=== PATIENT | male | born 2000 | race Caucasian/White ===

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

== ENCOUNTER 2021-10-21 20:23 | Observation (INO) | payer MEDICAID, SELFPAY ==
[2021-10-21] VITALS (7 sets, daily range): BP systolic 126–156; BP diastolic 79–97; PULSE 58–126; RESP 16–22; TEMP 37.1–37.2; O2SAT 98–100; BMI 20.2
[2021-10-21] MEDS: Ondansetron 4 MG/2 ML Vial IV (20:37)
[2021-10-21] MEDS: Morphine 4 MG/ML Syringe IV ×3 (20:37→23:07)
--- NOTE | 2021-10-21 21:00 | RAD_ITS ---
STUDY: X-RAY - RIGHT ANKLE REASON FOR EXAM: Male, 21 years old. right leg injury, twisted ankle while skate boarding. pt unable to extend leg TECHNIQUE: 3 view(s) of the ankle. COMPARISON: None. FINDINGS: Nondisplaced fracture of the medial malleolus. Obliquely oriented fracture of the distal fibula extending to just above the tibiotalar articulation. There is anterior apical angulation with approximately 6 mm of displacement. Longitudinal fracture of the posterior distal tibia. Anterior subluxation of the tibia in relation to the talus. Normal visualized talus and calcaneus. The visualized subtalar, talonavicular, calcaneocuboid and tarsal articulations are normal. Diffuse soft tissue swelling. RAD/Ankle 2 Views IMPRESSION: Trimalleolar fracture with tibiotalar joint subluxation/dislocation. Electronically Signed: Augusto Fowler MD ([place]) at 21:18 EDT ,
--- NOTE | 2021-10-21 21:00 | RAD_ITS ---
STUDY: X-RAY - RIGHT TIBIA AND FIBULA REASON FOR EXAM: Male, 21 years old. right leg injury, twisted ankle while skate boarding. pt unable to extend leg TECHNIQUE: 2 view(s) of the tibia and fibula were obtained. COMPARISON: None. FINDINGS: Trimalleolar fracture described on ankle x-ray. No additional fracture tibia or fibula. The soft tissue structures are unremarkable. RAD/Tibia & Fibula 2 Views IMPRESSION: 1. Trimalleolar fracture described on ankle x-ray. No additional fracture. Electronically Signed: Augusto Fowler MD ([place]) at 21:17 EDT ,
--- NOTE | 2021-10-21 21:11 | EDS_ITS ---
HPI History of Present Illness Chief Complaint: Lower Extremity Injury Informant: patient Narrative Narrative: This is an overall healthy patient who fell while skateboarding. He has pain to the right ankle area. No other injury. No history of prior significant injury to this area. He states he did not hit his head or lose consciousness. He cannot bear weight on this. Nothing really makes it better. PFSH PFSH Home Medications NK 10/21/21 [History Last Taken Unknown] Allergy/AdvReac Type Severity Reaction Status Date / Time amoxicillin [From Augmentin] Allergy Rash Verified 10/21/21 20:24 clavulanic acid Allergy Rash Verified 10/21/21 20:24 [From Augmentin] Social History Smoking Status: Never smoker ROS ROS ED Constitutional Constitutional ED: Denies fever(s) Eyes Eyes: Denies blurry vision or change in vision Cardiovascular Cardiovascular: Denies chest pain Respiratory/Chest Respiratory/Chest: Denies dyspnea Gastrointestinal Gastrointestinal: Denies nausea or vomiting Musculoskeletal Musculoskeletal: Reports other Details: Right ankle pain ; Denies back pain or neck pain Integumentary Denies rash Neurologic Neurologic: Denies headache(s) Psychiatric Psychiatric: Denies anxiety or depression Endocrine Endocrinology: Denies polydipsia or polyuria Hematologic/Lymphatic Hematologic/Lymphatic: Denies easy bleeding or easy bruising Allergic/Immunologic Allergic/Immunologic ED: Denies urticaria EXAM Physical Exam Const Vital Signs: 10/21/21 20:25 10/21/21 22:38 10/21/21 23:10 Temperature 99.0 F Temperature Source Temporal Pulse Rate 126 H 72 Pulse Rate [1 (Initial Baseline)] 66 Pulse Rate [2] 73 Pulse Rate [3] 73 Pulse Rate [4] 58 L Respiratory Rate 18 17 Respiratory Rate [1 (Initial Baseline)] 16 Respiratory Rate [2] 16 Respiratory Rate [3] 20 H Respiratory Rate [4] 22 H Blood Pressure 156/94 H 133/83 H Blood Pressure [1 (Initial Baseline)] 136/88 H Blood Pressure [2] 135/86 H Blood Pressure [3] 135/97 H Blood Pressure [4] 135/97 H Blood Pressure Mean 114 Pulse Ox 98 99 Oxygen Delivery Method Room Air Nasal Cannula Oxygen Delivery Method [1 (Initial Baseline)] Nasal Cannula Oxygen Delivery Method [2] Nasal Cannula Oxygen Delivery Method [3] Nasal Cannula Oxygen Delivery Method [4] Nasal Cannula Oxygen Flow Rate (L/min) 2 Oxygen Flow Rate (L/min) [1 (Initial Baseline)] 2 Oxygen Flow Rate (L/min) [2] 6 Oxygen Flow Rate (L/min) [3] 6 Oxygen Flow Rate (L/min) [4] 6 10/21/21 23:21 10/21/21 23:26 Temperature Temperature Source Pulse Rate Pulse Rate [1 (Initial Baseline)] Pulse Rate [2] Pulse Rate [3] Pulse Rate [4] Respiratory Rate Respiratory Rate [1 (Initial Baseline)] Respiratory Rate [2] Respiratory Rate [3] Respiratory Rate [4] Blood Pressure Blood Pressure [1 (Initial Baseline)] Blood Pressure [2] Blood Pressure [3] Blood Pressure [4] Blood Pressure Mean Pulse Ox Oxygen Delivery Method Nasal Cannula Room Air Oxygen Delivery Method [1 (Initial Baseline)] Oxygen Delivery Method [2] Oxygen Delivery Method [3] Oxygen Delivery Method [4] Oxygen Flow Rate (L/min) 6 Oxygen Flow Rate (L/min) [1 (Initial Baseline)] Oxygen Flow Rate (L/min) [2] Oxygen Flow Rate (L/min) [3] Oxygen Flow Rate (L/min) [4] Positive well nourished and well developed Constitutional Narrative: Patient looks somewhat uncomfortable. He is given morphine for pain. I will give him Zofran to help decrease risk of nausea General Appearance ED: well developed HEENT normocephalic and atraumatic Eyes PERRL Neck full ROM Thyroid: Negative for tender Chest Wall inspection of chest normal Resp normal respiratory effort Cardio regular rate and regular rhythm GI non-tender Palpation: soft Back/Spine no CVA tenderness Cervical Spine: Negative for cervical spine tenderness Thoracic Spine / Upper Back: Negative for thoracic spinal tenderness Lumbar Spine / Lower Back: Negative for lumbar spinal tenderness Extremity Extremity Narrative: Right foot is slightly rotated externally. This appears to be mostly at the ankle. But it does not appear to be fully dislocated. He denies pain or tenderness up at the knee. Squeezing of the knee does make the ankle hurt slightly though. Pulses and sensation are good distally. Neuro oriented x3 Sensorium / Orientation: alert Psych mental status grossly normal Skin Skin Narrative: No breaks in the skin. Lesions: no lesions Rashes: no rashes MDM MDM MDM Narrative Medical decision making narrative: Patient's x-ray shows a trimalleolar fracture with some partial subluxation dislocation. I discussed case with Dr. Mata. Plan will be to admit the patient for surgery. I discussed with the patient and his family reduction and procedural sedation. We agreed to go ahead with this. Procedure: Procedural sedation and right ankle fracture dislocation reduction: Patient's last meal was over 6 hours ago. No problems with anesthesia. No significant disease. Lungs clear. A Mallampati of 1. Timeout was done. Patient was given a total of 100 mg of propofol. This was given 40-40-20. Good sedation was achieved. He was kept on oxygen and end-tidal CO2 with cardiac monitoring the entire time. Lowest oxygen saturation was 99%. He woke up without difficulties. The ankle was reduced with traction countertraction. We placed it in posterior and then sugar-tong fiberglass. He tolerated the procedure well. Radiography Diagnostic Testing: Clinical Impression(s) from Imaging Studies Ankle X-Ray 10/21/21 21:00 IMPRESSION: Trimalleolar fracture with tibiotalar joint subluxation/dislocation. Electronically Signed: Augusto Fowler MD ([place]) at 21:18 EDT , Tibia/Fibula X-Ray 10/21/21 21:00 IMPRESSION: 1. Trimalleolar fracture described on ankle x-ray. No additional fracture. Electronically Signed: uAgusto Fowler MD ([place]) at 21:17 EDT , Procedures Lower Extremity Splints Lower Extremity Splint: Orthoglass Splint Fabrication: Fabricated Location: Right (Well-padded with web roll also.) Discharge Plan Triage Chief Complaint: Lower Extremity Injury ED Provider: Prabhakar Trinh Dx/Rx/DC Orders Clinical Impression: Closed fracture dislocation of right ankle Prescriptions: No Action NK RF: 0 Primary Care Provider: Christiano Warren Referrals: Christiano Warren MD [Primary Care Provider] - Disposition Disposition: Acute Care Hospital [facility]
--- NOTE | 2021-10-21 23:36 | PCM.HP.STD ---
HPI - General General Date of Admission: 10/21/21 HPI Narrative JINNY CERVANTES, is a 21 M who presents with right ankle fracture from skateboarding today. He just started skateboarding recently. He twisted ankle. He presented to the ER - has had closed reduction and application of splint. He has been given pain medication, and feeling better now. His parents are at bedside. Patient is otherwise healthy, he has hx of Augmentin allergy. [facility] Home Medications NK 10/21/21 [History Last Taken Unknown] Allergy/AdvReac Type Severity Reaction Status Date / Time amoxicillin [From Augmentin] Allergy Rash Verified 10/21/21 20:24 clavulanic acid Allergy Rash Verified 10/21/21 20:24 [From Augmentin] Social History Smoking Status: Never smoker ROS Constitutional Constitutional: Denies chills or fever(s) Gastrointestinal Gastrointestinal: Denies nausea or vomiting Musculoskeletal Musculoskeletal: Reports other Details: Right ankle pain, otherwise no additional complaints. Integumentary Integumentary: Reports systems reviewed and no addt'l complaints, except as documented Vital Signs Vital Signs Vital Signs: 10/21/21 20:25 10/21/21 22:38 10/21/21 23:10 Temperature 99.0 F Temperature Source Temporal Pulse Rate 126 H 72 Pulse Rate [1 (Initial Baseline)] 66 Pulse Rate [2] 73 Pulse Rate [3] 73 Pulse Rate [4] 58 L Respiratory Rate 18 17 Respiratory Rate [1 (Initial Baseline)] 16 Respiratory Rate [2] 16 Respiratory Rate [3] 20 H Respiratory Rate [4] 22 H Blood Pressure 156/94 H 133/83 H Blood Pressure [1 (Initial Baseline)] 136/88 H Blood Pressure [2] 135/86 H Blood Pressure [3] 135/97 H Blood Pressure [4] 135/97 H Blood Pressure Mean 114 Pulse Ox 98 99 Oxygen Delivery Method Room Air Nasal Cannula Oxygen Delivery Method [1 (Initial Baseline)] Nasal Cannula Oxygen Delivery Method [2] Nasal Cannula Oxygen Delivery Method [3] Nasal Cannula Oxygen Delivery Method [4] Nasal Cannula Oxygen Flow Rate (L/min) 2 Oxygen Flow Rate (L/min) [1 (Initial Baseline)] 2 Oxygen Flow Rate (L/min) [2] 6 Oxygen Flow Rate (L/min) [3] 6 Oxygen Flow Rate (L/min) [4] 6 10/21/21 23:21 10/21/21 23:26 10/21/21 23:29 Temperature 98.7 F Temperature Source Temporal Pulse Rate 60 Pulse Rate [1 (Initial Baseline)] Pulse Rate [2] Pulse Rate [3] Pulse Rate [4] Respiratory Rate 21 H Respiratory Rate [1 (Initial Baseline)] Respiratory Rate [2] Respiratory Rate [3] Respiratory Rate [4] Blood Pressure 129/83 H Blood Pressure [1 (Initial Baseline)] Blood Pressure [2] Blood Pressure [3] Blood Pressure [4] Blood Pressure Mean 98 Pulse Ox 99 Oxygen Delivery Method Nasal Cannula Room Air Room Air Oxygen Delivery Method [1 (Initial Baseline)] Oxygen Delivery Method [2] Oxygen Delivery Method [3] Oxygen Delivery Method [4] Oxygen Flow Rate (L/min) 6 Oxygen Flow Rate (L/min) [1 (Initial Baseline)] Oxygen Flow Rate (L/min) [2] Oxygen Flow Rate (L/min) [3] Oxygen Flow Rate (L/min) [4] 10/21/21 23:31 Temperature Temperature Source Pulse Rate Pulse Rate [1 (Initial Baseline)] Pulse Rate [2] Pulse Rate [3] Pulse Rate [4] Respiratory Rate Respiratory Rate [1 (Initial Baseline)] Respiratory Rate [2] Respiratory Rate [3] Respiratory Rate [4] Blood Pressure Blood Pressure [1 (Initial Baseline)] Blood Pressure [2] Blood Pressure [3] Blood Pressure [4] Blood Pressure Mean Pulse Ox Oxygen Delivery Method Room Air Oxygen Delivery Method [1 (Initial Baseline)] Oxygen Delivery Method [2] Oxygen Delivery Method [3] Oxygen Delivery Method [4] Oxygen Flow Rate (L/min) Oxygen Flow Rate (L/min) [1 (Initial Baseline)] Oxygen Flow Rate (L/min) [2] Oxygen Flow Rate (L/min) [3] Oxygen Flow Rate (L/min) [4] Weight Weight: 58.8 kg Body Mass Index (BMI) 20.2 Physical Exam Const alert, oriented x3 and no apparent distress Extremity Extremity Narrative: Splint to right ankle is clean, dry and intact. Patient is able to move toes on right foot, CFT < 2 seconds to all toes, pain is controlled at this time. Results Lab / Micro Data Result Diagrams: 10/21/21 23:35 10/21/21 23:35 Radiology Impression Ankle X-Ray 10/21/21 21:00 IMPRESSION: Trimalleolar fracture with tibiotalar joint subluxation/dislocation. Electronically Signed: Augusto Fowler MD ([place]) at 21:18 EDT , Tibia/Fibula X-Ray 10/21/21 21:00 IMPRESSION: 1. Trimalleolar fracture described on ankle x-ray. No additional fracture. Electronically Signed: Augusto Fowler MD (Brooks) at 21:17 EDT , Assessment & Plan Assessment/Plan (1) Closed displaced trimalleolar fracture: PLAN: Evaluation performed. Reviewed right ankle xrays - ordered CT scan. We will plan to proceed with ORIF of the right ankle. It was noted patient has hypertension in the ER. A consult was placed to the hospitalist for medical evaluation. No weightbearing right ankle. Keep right foot elevated. Keep splint clean, dry and intact. SCD left LE. Pain management - tylenol, oxyir, Dilaudid.
[2021-10-21 23:44] LABS: Absolute Lymphocyte Count 1.23 X10^3/uL (0.83-4.51); Absolute Neutrophil Count 11.1 X10^3/uL (2.0-7.7); Basophil# 0.06 X10^3/uL; Basophil% 0.5 % (0-1); Eosinophil# 0.04 X10^3/uL; Eosinophils% 0.3 % (0-5); Hematocrit 39.8 % (40-54); Hemoglobin 13.3 g/dL (13.0-16.5); Lymphocyte # 1.23 X10^3/ul (0.83-4.51); Lymphocyte % 9.3 % (19-41); Mean Corp Hgb Conc 33.4 g/dL (32-36); Mean Corpuscular Hgb 28.1 pg (27.0-32.0); Mean Platelet Vol. 10.7 fl (6.2-12.0); Monocyte% 5.3 % (0-10); NRBC Flagged by Analyzer 0 % (0-5); Neutrophil # 11.07 X10^3/uL (2.7-7.7); Neutrophil % 83.6 % (47-70); Platelet Count 210 K/mm3 (150-450); RBC Distribution Width CV 12.2 % (11.6-14.6); RBC Distribution Width SD 36.9 fl (35.1-43.9); Red Blood Count 4.74 M/mm3 (4.6-6.2); White Blood Count 13.2 K/mm3 (4.4-11.0)
[2021-10-22] VITALS (13 sets, daily range): BP systolic 97–128; BP diastolic 57–78; PULSE 65–84; RESP 14–19; TEMP 36.6–37.3; O2SAT 96–100; BMI 20.1
[2021-10-22 00:04] LABS: ALB/GLOB Ratio 1.2 RATIO (0.9-2.4); AST(SGOT) 22 U/L (15-37); Alanine Aminotransfer ALT/SGPT 23 U/L (16-61); Albumin, Serum 3.5 g/dL (3.2-5.0); Alkaline Phosphatase 148 U/L (45-117); Anion Gap 7 (5-15); BUN 15 mg/dL (7-18); BUN/Creat Ratio 17.4 RATIO (10-20); Chloride 110 mmol/L (98-107); Creatinine, Serum 0.86 mg/dL (0.70-1.30); EST Glomerular Filtration Rate 119 mL/min (>60); Est Glom Filt Rate - Afr Amer 144 mL/min (>60); Estimated Creatinine Clearance 113.95 ml/min; Glucose 107 mg/dL (74-106); Potassium 3.5 mmol/L (3.5-5.1); Protein, Total 6.5 g/dL (6.4-8.2); Sodium Level 143 mmol/L (136-145)
--- NOTE | 2021-10-22 00:04 | CT_ITS ---
Lower extremity CT without contrast FINDINGS: There is an oblique comminuted fracture of the distal fibula. There is an adjacent fracture of the posterior lip of the distal tibia. CT/Extremity Lower without Contra IMPRESSION: Fracture of the fibula and the posterior lip of the tibia. Electronically Signed: Leland Stark MD at 2:52 EDT ,
[2021-10-22] MEDS: 0.9% Saline Lock 10 ML Syringe IV ×3 (04:05→11:47)
[2021-10-22] MEDS: HYDROmorphone 0.5 MG/0.5 ML SYRINGE IV ×3 (04:05→11:46)
--- NOTE | 2021-10-22 11:40 | PCM.PN.HOSP ---
Subjective Subjective Mr. Prater is a 21-year-old male who presented to the emergency department last evening after suffering a fall while skateboarding. On presentation he reported having pain in his right ankle area. He denied any prior injury to that site. He reported that he was unable to bear weight on that leg secondary to pain. Imaging revealed a closed displaced trimalleolar fracture and the patient underwent a closed reduction and application of splint in the emergency department. He was given pain medication and admitted to the hospital for surgery. He was admitted by podiatry and Dr. Mata has asked us to evaluate him preoperatively for medical clearance. The patient denies any past medical history and does not take any medications on a regular basis. He denies any family history of any medical issues. He denies tobacco, alcohol, or and drug use. He currently states his pain is controlled and has no other needs. He is asking if he will be able to go home later today after surgery and I relayed to him this was up to Dr. Mata. He indicates he is never used crutches previously and will need some instruction in this. Objective Data Objective Data Vital Signs: Vital Signs Temp Pulse Resp BP Pulse Ox 98.5 F 82 14 114/73 98 10/22/21 07:30 10/22/21 07:30 10/22/21 07:30 10/22/21 07:30 10/22/21 07:30 Oxygen Flow Rate (L/min) [4] 6 Oxygen Flow Rate (L/min) [3] 6 Oxygen Flow Rate (L/min) [2] 6 Oxygen Flow Rate (L/min) [1 ( 2 Initial Baseline)] Oxygen Flow Rate (L/min) 6 Oxygen Delivery Method [4] Nasal Cannula Oxygen Delivery Method [3] Nasal Cannula Oxygen Delivery Method [2] Nasal Cannula Oxygen Delivery Method [1 ( Nasal Cannula Initial Baseline)] Oxygen Delivery Method Room Air Weight: 58.2 kg Body Mass Index (BMI) 20.1 Intake & Output: Intake and Output for Last 24 Hours 10/20/21 10/21/21 10/22/21 23:59 23:59 23:59 Output Total 375 / 375 Balance -375 / -375 Lab / Micro Data Result Diagrams: 10/21/21 23:35 10/21/21 23:35 Labs: Laboratory Results - last 24 hr 10/21/21 23:35: WBC 13.2 H, RBC 4.74, Hgb 13.3, Hct 39.8 L, MCV 84.0, MCH 28.1, MCHC 33.4, RDW Std Deviation 36.9, RDW Coeff of Delfino 12.2, Plt Count 210, MPV 10.7, Immature Gran % (Auto) 1.000 H, Neut % (Auto) 83.6 H, Lymph % (Auto) 9.3 L, [place] % (Auto) 5.3, Eos % (Auto) 0.3, Baso % (Auto) 0.5, Absolute Neuts (auto) 11.1 H, Absolute Lymphs (auto) 1.23, Nucleated RBC % 0 10/21/21 23:35: Sodium 143, Potassium 3.5, Chloride 110 H, Carbon Dioxide 26.0, Anion Gap 7, BUN 15, Creatinine 0.86, Estim Creat Clear Calc 113.95, Est GFR (MDRD) Af Amer 144, Est GFR (MDRD) Non-Af 119, BUN/Creatinine Ratio 17.4, Glucose 107 H, Calcium 8.0 L, Total Bilirubin 0.30, AST 22, ALT 23, Alkaline Phosphatase 148 H, Total Protein 6.5, Albumin 3.5, Globulin 3.0, Albumin/Globulin Ratio 1.2 Micro: Microbiology 10/22/21 00:12 Nasal Secretion SARS-CoV-2 Antigen (Rapid) - Final Radiography Diagnostic Testing: Radiology Impression Ankle X-Ray 10/21/21 21:00 IMPRESSION: Trimalleolar fracture with tibiotalar joint subluxation/dislocation. Electronically Signed: Augusto Fowler MD ([place]) at 21:18 EDT , Tibia/Fibula X-Ray 10/21/21 21:00 IMPRESSION: 1. Trimalleolar fracture described on ankle x-ray. No additional fracture. Electronically Signed: Augusto Fowler MD ([place]) at 21:17 EDT , Lower Extremity CT 10/22/21 00:04 IMPRESSION: Fracture of the fibula and the posterior lip of the tibia. Electronically Signed: Leland Stark MD at 2:52 EDT , Physical Exam Const alert, oriented x3, no apparent distress, average body habitus, healthy appearing and well nourished Exam Limitations: no limitations HEENT head/scalp atraumatic and moist oral mucous membranes HEENT Narrative: Mallampati 2, dentition good, no thrush Head and Scalp: normocephalic Resp normal respiratory effort, no retractions, no use of accessory muscles and clear to auscultation bilaterally Auscultation: Negative for crackles, rales, rhonchi or wheezes Cardio regular rate, regular rhythm, S1 normal heart sound, S2 normal heart sound, no murmurs, no rub, no gallops, no clicks and no JVD GI normal to inspection, nondistended, normoactive bowel sounds, soft to palpation, non-tender and non-distended; Negative for hepatosplenomegaly Extremity no clubbing, cyanosis or edema Extremity Narrative: Right lower extremity and posterior splint, cap refill is 2+ bilateral lower extremities with pedal pulses on the left being 2+ as well Neuro oriented x3, CN's II-XII intact bilaterally, moves all extremities, no focal motor deficits and no sensory deficits noted Sensorium / Orientation: awake and alert Speech: speech normal Motor Exam: strength 5/5 throughout Assessment & Plan Assessment/Plan (1) Closed displaced trimalleolar fracture: (2) Elevated blood pressure reading: PLAN: Closed displaced bimalleolar fracture of the right lower extremity -OR later today per primary service -PT consultation for gait training with crutches -Pain medication per primary -Add stool softener -N.p.o. per primary service -Medically stable for OR and discharge later today if primary service desires Elevated blood pressure reading -Blood pressure was elevated upon presentation the emergency department -Suspect this was pain induced -Subsequent pressures have normalized -No intervention needed at this time DVT prophylaxis Patient is overall low risk given age and comorbidities -Early mobilization CODE STATUS -Full code Charges/Coding Visit Charges Inpatient E&M: 80675 Subs Hosp L2
--- NOTE | 2021-10-22 11:55 | CASEMGMT ---
RN SHALONDA Face to Face with patient for initial transition planning/care coordination assessment. RN SHALONDA introduced self and role at [facility]. Patient lying in bed, alert and oriented, father at bedside. Patient willing to participate in assessment and is able to answer all questions appropriately. Care providers, pharmacy, and demographics verified. Patient wishes to discharge home, denies need for home health at this time. Patient states he has no further needs or concerns at this time. CM to follow for discharge planning needs that may arise. PCP: Kelvin Specialists: none Preferred Pharmacy: [facility] Insurance: [facility] Prescription Benefit: yes Living Will/HPOA: none LNOK: parents Living Arrangements: Patient lives with parents in a 2 story home with access with bed and bath on first floor. Patient was independent prior. Transportation: parents DME/HHC: Patient was provided with crutches. No further DME in the home. No previous HHC Disposition Plan: Patient to discharge home with family support and follow-up plans in place. Marisel ANN, RN, CM
[2021-10-22] MEDS: 0.9% Normal Saline 1,000 ML 100 ML IV ×2 (13:00→18:04)
--- NOTE | 2021-10-22 13:20 | RAD_ITS ---
STUDY: X-RAY - RIGHT ANKLE REASON FOR EXAM: Male, 21 years old. FX TECHNIQUE: 3 view(s) of the ankle. COMPARISON: 10/21/2021 FINDINGS: Fluoroscopy the right ankle was utilized and operating room during open reduction internal fixation of fracture of the distal fibula and distal syndesmosis stabilization and 3 images are submitted for interpretation.. RAD/Ankle min 3 Views IMPRESSION: Fluoroscopy during ankle surgery. Electronically Signed: Valentin Bruce MD at 14:51 EDT ,
[2021-10-22] MEDS: Lidocaine 1% /Epi 1:100 (20ml) 20 ML Vial (13:29)
--- NOTE | 2021-10-22 15:00 | PCM.OPRPT ---
Problems Associated Problem List Diagnoses (1) Closed displaced trimalleolar fracture: Report of Operation Date of Procedure: 10/22/21 Pre-Operative Diagnosis: Trimalleous ankle fracture, right Post-Operative Diagnosis: Same Surgery/Procedure Performed:: Open reduction internal fixation right ankle fracture Surgeon: Trung Mata vector control specialist: Type of Anesthesia: General and Local Specimen's removed: None Estimated Blood Loss (mL): 20mL Description of Procedure: Indications: This is a 21 year old male who sustained a right ankle fracture - trimalleolus ankle fracture. Xrays and CT scan obtained, there was displaced ankle fracture. Patient elected to proceed with open reduction internal fixation of the fracture. The procedure was reviewed with him in detail. The rationale of the procedure was reviewed with him. The goals and the expectations were discussed and reviewed with him. The possible benefits vs risks and all potential complications were discussed and reviewed with the patient. Patient advised the risks include but are not limited to pain, swelling, blood clot, infection, need for further surgery, symptomatic hardware, numbness, post op arthritis, nerve injury, weakness, loss of limb, loss of life.The patient expressed understanding and agreement, and elected to proceed forward with the procedure. All of his questions were answered. The consent forms were reviewed with him and she freely signed it. No guarantees were given or implied. Operative Procedure: The patient was brought back to the operating room and was placed on the operating room table in the supine position. The patient was carefully secured to the operating room table with a safety belt around her waist. The patient received 900mg of IV Clindamycin for antibiotic prophylaxis. A well padded pneumatic tourniquet was applied around the right thigh, but was not used for this procedure. The right lower extremity was scrubbed, prepped, and draped in the usual aseptic fashion. A total ot 10mL of 1% Lidocaine pain with 1:100,000 epi was given as a lateral ankle block. The ankle was noted to be unstable consistent with trimalleolus ankle fracture. Using a 15 blade, a skin incision was made overlying the lateral malleolus. Careful dissection was completed down to the lateral malleolus fracture. The periosteum was left intact. There was an oblique malleolus fracture. The fibula was brought out to length and was rotated back to normal position, it was stabilized with a bone clamp. The fracture was fixated using rigid open reduction internal fixation technique with 1 Arthrex a titanium distal fibular plate, which was applied across the fracture site using a total of 3.0mm locking screws distally and 3.5mm locking screws and one 3.5mm cortical screw proximally through the plate. The clamp was removed. There fracture was reduced, very stable, and in good position. This was confirmed visually as well as using intra operative fluoroscopy. Attention was directed to the medial malleolus which was reduced, in good position and stable so it was no fixated. The posterior malleolus was in good position as well. There fractures were reduced, stable, and in good position. This was confirmed visually as well as using intra operative fluoroscopy. There was noted to be some mild instability of the distal syndesmosis, and the syndesmosis was reduced, and fixated using one Arthrex Tightrope and appropriately tensioned. At this time, the distal ankle syndesmosis was stressed with and it was noted be be stable with no gapping present. Again, the posterior malleolus was intact, properly aligned, and did not need to be fixated. At this time there was noted to be excellent stability to the ankle joint, range of motion was smooth and gliding normally. There was no popping, clicking, or crepitus present. Intraoperative fluoroscopy was used to check the site and it was noted fibular length and tib fib overlap was normal, ankle mortise with medial and lateral gutters in normal position/alignment with good positioning of the plate, screws, and tight rope. There was good bone to bone alignment of the fracture sites. There was excellent stability to the ankle / fracture site. The ankle was stressed under fluoroscopy and negative anterior drawer, normal talar tilt, no medial gutter gapping with external stress test, and no gapping or instability with Cotton test as noted above. The surgical site was flushed out with copious amounts of normal saline solution. The subcutaneous tissue was reapproximated using 2-0 Vicryl, and the skin was 3-0 Nylon. Hemostasis maintained with no significant bleeding. CFT < 2 seconds to all toes with intact pedal pulses. A dressing was applied which consisted of Betadine soaked adaptic, 4x4 gauze, Kerlix, webril, ever bandages, and well padded below knee posterior splint w/ heel offloaded. Good vascular flow to the foot/ankle was maintained throughout the procedure with CFT < 2 seconds, and normal temperature present. Also of note, all vital structures, including all vital neurovascular and tendon structures were properly identified, protected and retracted as necessary. The patient tolerated the above procedure well and anesthesia well with no complications. The patient was transported to the recovery room in good condition and vital signs stable. Post op orders were placed, no weightbearing right foot, keep foot elevated. Keep dressing/splint clean, dry and intact. Patient will be followed as inpatient. Grafts/Implants Used: 1 x Arthrex plate with screws, 1 x Tight rope Complications None
--- NOTE | 2021-10-22 15:15 | RAD_ITS ---
STUDY: X-RAY - RIGHT ANKLE REASON FOR EXAM: Male, 21 years old. post op TECHNIQUE: 3 view(s) of the ankle. COMPARISON: 10/21/2021 FINDINGS: Interval open reduction internal fixation of fracture the distal fibula with a lateral plate and screws. Nondisplaced oblique fracture through the medial malleolus the tibia. Interval reduction of the tibiotalar joint. Interval distal syndesmosis stabilization. Normal visualized talus and calcaneus. The visualized subtalar, talonavicular, calcaneocuboid and tarsal articulations are normal. Fiberglas cast obscures soft tissue and bony detail. RAD/Ankle min 3 Views IMPRESSION: Interval reduction of the tibiotalar joint with open reduction internal fixation of fracture of the distal fibula and stabilization the distal syndesmosis. Electronically Signed: Valentin Bruce MD at 15:37 EDT ,
--- NOTE | 2021-10-22 16:30 | NURSING ---
returned from pacu rt ankle ever wrap intact, drowsy, no co pain voiced ,father @ bedside
[2021-10-22] MEDS: Clindamycin 600 MG/50 ML BAG 100 MG IV (22:13)
[2021-10-22] MEDS: Acetaminophen 325 MG Tablet 650 MG PO (22:14)
[2021-10-23] MEDS: 0.9% Normal Saline 1,000 ML 100 ML IV (03:49)
[2021-10-23 03:50] VITALS: BP 104/50; PULSE 60; RESP 16; TEMP 36.4; O2SAT 100
[2021-10-23] MEDS: Clindamycin 600 MG/50 ML BAG 100 MG IV (04:48)
[2021-10-23 08:18] VITALS: BP 112/63; PULSE 74; RESP 16; TEMP 36.8; O2SAT 100
[2021-10-23] MEDS: oxyCODONE 5 MG Tablet PO ×2 (08:26→14:03)
--- NOTE | 2021-10-23 11:22 | PCM.PN.HOSP ---
Subjective Subjective Patient states he is doing okay. Complaining of a little pain at the medial right ankle and some tingling in his toes. Otherwise, he has no issues. He is waiting for therapy to come see him to teach him how to use his crutches. Objective Data Objective Data Vital Signs: Vital Signs Temp Pulse Resp BP Pulse Ox 98.3 F 74 16 112/63 100 10/23/21 08:18 10/23/21 08:18 10/23/21 08:18 10/23/21 08:18 10/23/21 08:18 Oxygen Flow Rate (L/min) [4] 6 Oxygen Flow Rate (L/min) [3] 6 Oxygen Flow Rate (L/min) [2] 6 Oxygen Flow Rate (L/min) [1 ( 2 Initial Baseline)] Oxygen Flow Rate (L/min) 6 Oxygen Delivery Method [4] Nasal Cannula Oxygen Delivery Method [3] Nasal Cannula Oxygen Delivery Method [2] Nasal Cannula Oxygen Delivery Method [1 ( Nasal Cannula Initial Baseline)] Oxygen Delivery Method Room Air Weight: 58.2 kg Body Mass Index (BMI) 20.1 Intake & Output: Intake and Output for Last 24 Hours 10/21/21 10/22/21 10/23/21 23:59 23:59 23:59 Intake Total 856.67 / 1356.67 1525 / 1525 Output Total 1275 / 2024 750 / 750 Balance -418.33 / -668.33 775 / 775 Lab / Micro Data Result Diagrams: 10/21/21 23:35 10/21/21 23:35 Micro: Microbiology 10/22/21 00:12 Nasal Secretion SARS-CoV-2 Antigen (Rapid) - Final Radiography Diagnostic Testing: Radiology Impression Ankle X-Ray 10/22/21 13:20 IMPRESSION: Fluoroscopy during ankle surgery. Electronically Signed: Valentin Bruce MD at 14:51 EDT , Ankle X-Ray 10/22/21 15:15 IMPRESSION: Interval reduction of the tibiotalar joint with open reduction internal fixation of fracture of the distal fibula and stabilization the distal syndesmosis. Electronically Signed: Valentin Bruce MD at 15:37 EDT , Physical Exam Const alert, oriented x3, no apparent distress, average body habitus, healthy appearing and well nourished Constitutional Narrative: Young male sitting up in bed, father at bedside, patient appears comfortable nontoxic, very pleasant Exam Limitations: no limitations HEENT head/scalp atraumatic and moist oral mucous membranes HEENT Narrative: Mallampati 2, no thrush Head and Scalp: normocephalic Resp normal respiratory effort, no retractions, no use of accessory muscles and clear to auscultation bilaterally Auscultation: Negative for crackles, rales, rhonchi or wheezes Cardio regular rate, regular rhythm, S1 normal heart sound, S2 normal heart sound, no murmurs, no rub, no gallops, no clicks and no JVD GI normal to inspection, nondistended, normoactive bowel sounds, soft to palpation, non-tender and non-distended; Negative for hepatosplenomegaly Extremity no clubbing, cyanosis or edema Extremity Narrative: Right lower extremity and posterior splint, cap refill is 2+ bilateral lower extremities with pedal pulses on the left being 2+ as well Neuro oriented x3, CN's II-XII intact bilaterally, moves all extremities, no focal motor deficits and no sensory deficits noted Sensorium / Orientation: awake and alert Speech: speech normal Motor Exam: strength 5/5 throughout Assessment & Plan Assessment/Plan (1) Closed displaced trimalleolar fracture: (2) Elevated blood pressure reading: PLAN: Closed displaced bimalleolar fracture of the right lower extremity -Postop day 1 ORIF right ankle fracture -PT consultation for gait training with crutches--> instruction pending -Pain medication per primary -Recommended MiraLAX daily while on pain medication after discharge -Regular diet reinitiated and tolerating well Elevated blood pressure reading -Blood pressure has normalized -I suspect his elevated reading on presentation emergency department was related to his pain DVT prophylaxis -Patient is overall low risk given age and comorbidities -Early mobilization CODE STATUS -Full code Disposition: -Medically stable for discharge later today Charges/Coding Visit Charges Inpatient E&M: 09108 Subs Hosp L2
--- NOTE | 2021-10-23 11:53 | DCINST_ITS ---
Discharge Instructions Activity Discharge Activity: Use Crutches Weight Bearing Status: No weight bearing (No weightbearing right foot.) Keep extremity elevated above heart level: Right Leg (Keep right foot elevated for at least 50 minutes of every hour.) Dressing / Incision Call your doctor if your incision/area has: Continuous Slow Oozing, Sudden Increased Bleeding and Foul Smelling Discharge Call your doctor if you observe: Fever of 101 or Higher, Shortness of breath, Chest pain, Increased palpitations (irregular heartbeat), Calf discomfort and Uncontrolled pain Change Dressing in: leave in place till F/U Remove Dressing in: do not remove dressing Cleanse incision/area with: Do not get Incision Wet and Keep Dressing Clean & Dry Follow Up Care Please Follow Up With: Trung Mata DPM When: Follow up with Dr. Mata within 1 week at [facility], [address] [place] [address], [facility] [place]. Office phone number: [phone] Dr. Mata cell: [phone] Test Results: Test results from this visit will be discussed in further detail at your follow-up appointment, if applicable. Discharge Plan Admission Admit Date/Time: 10/21/21 22:29 Attending Provider: Trung Mata Primary Care Provider: Christiano Warren Consulting Providers: Marcia Goldstein ; Vasile Gonzalez Efewongbe ; Fransisca Medina ; Glendy Branch NP ; Jersey Boyle NP ; Mable Gallo Discharge Orders/Prescriptions Prescriptions: New hydrocodone-acetaminophen 5-325 mg tablet 1 - 2 tab PO Q6H PRN (Reason: pain) 2 Days Qty: 14 RF: 0 Referrals / Follow Up: Christiano Warren MD [Primary Care Provider] -
--- NOTE | 2021-10-23 11:56 | PCM.DC.SUM ---
Providers Date of Admission: 10/21/21 Primary Care Physician: Dr. Christiano Warren MD Consultations 10/21/21 23:16 Consult: Hospitalist Routine Consulting Provider: [facility] Reason for Consult: hypertension, medical evaluation EMERGENT Consult: No MD Notified: Yes Date Notified: 10/21/21 Time Notified: 23:17 Method of Notification: Answering Service Reason For Visit: TRIMALLEOLUS ANKLE FRACTURE Diagnosis Discharge Diagnosis (1) Closed displaced trimalleolar fracture: Status: Acute Code(s): S82.853A - Displaced trimalleolar fracture of unspecified lower leg, initial encounter for closed fracture (2) Elevated blood pressure reading: Status: Acute Code(s): R03.0 - Elevated blood-pressure reading, without diagnosis of hypertension Medications at Discharge Home Medications hydrocodone-acetaminophen 1 - 2 tab PO Q6H PRN 2 Days #14 tab 10/23/21 Hospital Course Operations - (ORIF right ankle fracture on 10/22/2021) Summary of Care Provided Hospital Course: Patient underwent ORIF right ankle fracture which went very well with no complications. Patient is doing very well today with no problems. Patient will be discharged home today. Physical Exam Const alert, oriented x3 and no apparent distress Extremity Extremity Narrative: Splint to right ankle is clean, dry and intact. Patient is able to move toes on right foot, CFT < 2 seconds to all toes, pain is controlled at this time. Weight / BMI Weight Weight: 58.2 kg Body Mass Index (BMI) 20.1 ABG / Lab / Microbiology Data Result Diagrams: 10/21/21 23:35 10/21/21 23:35 Microbiology: Microbiology 10/22/21 00:12 Nasal Secretion SARS-CoV-2 Antigen (Rapid) - Final Radiography Diagnostic Testing: Radiology Impression Ankle X-Ray 10/22/21 13:20 IMPRESSION: Fluoroscopy during ankle surgery. Electronically Signed: Valentin Bruce MD at 14:51 EDT , Ankle X-Ray 10/22/21 15:15 IMPRESSION: Interval reduction of the tibiotalar joint with open reduction internal fixation of fracture of the distal fibula and stabilization the distal syndesmosis. Electronically Signed: Valentin Bruce MD at 15:37 EDT , D/C Instructions Weight Bearing Status: No weight bearing (No weightbearing right foot.) Keep extremity elevated above heart level: Right Leg (Keep right foot elevated for at least 50 minutes of every hour.) Call your doctor if your incision/area has: Continuous Slow Oozing, Sudden Increased Bleeding and Foul Smelling Discharge Call your doctor if you observe: Fever of 101 or Higher, Shortness of breath, Chest pain, Increased palpitations (irregular heartbeat), Calf discomfort and Uncontrolled pain Cleanse incision/area with: Do not get Incision Wet and Keep Dressing Clean & Dry Please Follow Up With: Trung Mata DPM When: Follow up with Dr. Mata within 1 week at [facility], [address] [place] [address], [place]. Office phone number: [phone] Dr. Mata cell: [phone] Meaningful Use Info Meaningful Use Diagnoses (Choose all that apply): None applicable Discharge Plan Admission Admit Date/Time: 10/21/21 22:29 Attending Provider: Trung Mata Primary Care Provider: Christiano Warren Consulting Providers: Marcia Goldstein ; Vasile Gonzalez ; Eleuterio Adams ; Fransisca Medina ; Glendy Branch NP ; Jersey Boyle NP ; Mable Gallo Discharge Orders/Prescriptions Prescriptions: New hydrocodone-acetaminophen 5-325 mg tablet 1 - 2 tab PO Q6H PRN (Reason: pain) 2 Days Qty: 14 RF: 0 Referrals / Follow Up: Christiano Warren MD [Primary Care Provider] -
--- NOTE | 2021-10-23 11:58 | PCM.PROGNOTE ---
Subjective Subjective Patient was seen today for follow up on right ankle. He is doing well, he is sitting up in chair with no complaints. Pain well controlled. No fever, chills, nausea or vomiting. Objective Data Objective Data Vital Signs: Vital Signs Temp Pulse Resp BP Pulse Ox 98.3 F 74 16 112/63 100 10/23/21 08:18 10/23/21 08:18 10/23/21 08:18 10/23/21 08:18 10/23/21 08:18 Oxygen Flow Rate (L/min) [4] 6 Oxygen Flow Rate (L/min) [3] 6 Oxygen Flow Rate (L/min) [2] 6 Oxygen Flow Rate (L/min) [1 ( 2 Initial Baseline)] Oxygen Flow Rate (L/min) 6 Oxygen Delivery Method [4] Nasal Cannula Oxygen Delivery Method [3] Nasal Cannula Oxygen Delivery Method [2] Nasal Cannula Oxygen Delivery Method [1 ( Nasal Cannula Initial Baseline)] Oxygen Delivery Method Room Air Weight: 58.2 kg Body Mass Index (BMI) 20.1 Intake & Output: Intake and Output for Last 24 Hours 10/21/21 10/22/21 10/23/21 23:59 23:59 23:59 Intake Total 856.67 / 1356.67 1525 / 1525 Output Total 1275 / 2025 750 / 750 Balance -418.33 / -668.33 775 / 775 Lab / Micro Data Result Diagrams: 10/21/21 23:35 10/21/21 23:35 Micro: Microbiology 10/22/21 00:12 Nasal Secretion SARS-CoV-2 Antigen (Rapid) - Final Radiography Diagnostic Testing: Radiology Impression Ankle X-Ray 10/22/21 13:20 IMPRESSION: Fluoroscopy during ankle surgery. Electronically Signed: Valentin Bruce MD at 14:51 EDT , Ankle X-Ray 10/22/21 15:15 IMPRESSION: Interval reduction of the tibiotalar joint with open reduction internal fixation of fracture of the distal fibula and stabilization the distal syndesmosis. Electronically Signed: Valentin Bruce MD at 15:37 EDT , Physical Exam Const alert, oriented x3 and no apparent distress Extremity Extremity Narrative: Splint to right ankle is clean, dry and intact. Patient is able to move toes on right foot, CFT < 2 seconds to all toes, pain is controlled at this time. No active bleeding. No suspicion for infection or DVT. Assessment & Plan Assessment/Plan (1) Closed displaced trimalleolar fracture: PLAN: Evaluation performed. Reviewed right ankle xrays post op xrays and discussed with patient and his family who were bedside today. No weightbearing right foot/ankle. Keep right foot elevated. Keep splint clean, dry and intact. Reviewed mechanical DVT prophylaxis. Pain management - hydrocodone/acetaminophen for discharge. Ok to discharge home today and follow up with me within 1 week, sooner if needed. (2) Elevated blood pressure reading:
[2021-10-23 14:39] VITALS: BP 118/73; PULSE 73; RESP 18; TEMP 37.2; O2SAT 99
[2021-10-24 09:19] LABS: Vitamin D,25 Hydroxy 13.9 ng/mL
== END 2021-10-23 14:55 | disposition home or self-care (01) | DRG 313 ==
LOC: ED 23:31 → MS3 10-22 09:51
PROVIDERS: Admitting Provider Podiatrist; Emergency Provider Emergency Medicine; PCP Pediatrics; Visit Provider Podiatrist
PROC: (CPT 27822; principal; 2021-10-22 13:15)
DX: S82.851A Displaced trimalleolar fracture of right lower leg, initial encounter for closed fracture (principal); R03.0 Elevated blood-pressure reading, without diagnosis of hypertension; S93.01XA Subluxation of right ankle joint, initial encounter; V00.131A Fall from skateboard, initial encounter; Y93.51 Activity, roller skating (inline) and skateboarding; Z20.822 Contact with and (suspected) exposure to COVID-19
CPT/HCPCS: 27822; 01480; 64447; 64450; 73590; 73600; 73610; 73700; 76000; 80053; 82306; 85025; 87811; 96361; 96365; 96366; 96375; 96376; 97161; 99218; 99285; C1713; J7030; A4216; G0378; J2405